=== PATIENT | male | born 1995 | race Caucasian/White ===

== ENCOUNTER 2017-10-08 04:20 | Emergency (ER) | payer OTHER ==
[~2017-10-08] VITALS: Ht 185.4 cm; Wt 79.7 kg
[2017-10-08] MEDS ORDERED: FAMOTIDINE 20 MG/2 ML ONE (04:50)
[2017-10-08] MEDS ORDERED: ONDANSETRON 2MG/ML, 2ML ONE (04:50)
[2017-10-08] MEDS ORDERED: FAMOTIDINE 20 MG/2 ML IVP ONE (05:00)
[2017-10-08] MEDS ORDERED: ONDANSETRON 2MG/ML, 2ML IVPush ONE (05:00)
[2017-10-08] MEDS ORDERED: SODIUM CHLORIDE 0.9% 1,000ML IVBOLUS ONE (05:00)
[2017-10-08] MEDS ORDERED: SODIUM CHLORIDE FLUSH 10ML SYR IVF ONE (05:00)
[2017-10-08 05:12] LABS: HEMATOCRIT 50.4 % (39.2-51.8); HEMOGLOBIN 17.5 g/dL (13.7-18.0); WHITE BLOOD COUNT 10.7 x10^3/uL (3.4-10)
[2017-10-08] MEDS ORDERED: ACETAMINOPHEN 500 MG TABLET ONE ×2 (05:24→05:27)
[2017-10-08 05:25] LABS: BLOOD UREA NITROGEN 25 mg/dL (7-18)
[2017-10-08] MEDS ORDERED: ACETAMINOPHEN 500 MG TABLET PO ONE (05:30)
[2017-10-08] MEDS ORDERED: PROMETHAZINE 25 MG/ML, 1ML ONE ×2 (05:57→06:24)
[2017-10-08] MEDS ORDERED: PROMETHAZINE 25 MG/ML, 1ML IM ONE (06:00)
[2017-10-08] MEDS ORDERED: DIPHENHYDRAMINE 50 MG/ML, 1ML ONE (06:24)
[2017-10-08] MEDS ORDERED: PROCHLORPERAZINE 5 MG/ML, 2ML ONE (06:24)
[2017-10-08] MEDS ORDERED: DIPHENHYDRAMINE 50 MG/ML, 1ML IVPush ONE ×2 (06:30→07:00)
[2017-10-08] MEDS ORDERED: PROCHLORPERAZINE 5 MG/ML, 2ML IVPush ONE (06:30)
[2017-10-08] MEDS ORDERED: OXYMETAZOLINE NASAL SPRAY 0.05%, 15ML ONE (06:34)
[2017-10-08 06:37] VITALS: BP 107/60
[2017-10-08] MEDS ORDERED: LORazepam 2 MG/ML, 1ML IVPush ONE (07:00)
== END 2017-10-08 08:06 | disposition home or self-care (01) ==
LOC: ED 05:16
DX: R19.7 Diarrhea, unspecified (principal); R11.2 Nausea with vomiting, unspecified; R10.9 Unspecified abdominal pain
CPT/HCPCS: 36415; 80048; 81003; 82040; 85025; 96361; 96374; 96375; 99285; J0780; J1200; J2405; J7030; S0028